=== PATIENT | male | born 1985 ===

== ENCOUNTER 2023-10-18 13:25 | Emergency (ER) | payer OTHER ==
[~2023-10-18] VITALS: Ht 188 cm; Wt 113.4 kg
[2023-10-18 13:34] VITALS: BP 108/73
[2023-10-18] MEDS ORDERED: IBUP800 PO (15:30)
== END 2023-10-18 15:48 | disposition home or self-care (01) ==
LOC: ER 13:25
DX: S16.1XXA Strain of muscle, fascia and tendon at neck level, initial encounter (principal); V43.52XA Car driver injured in collision with other type car in traffic accident, initial encounter; Z88.0 Allergy status to penicillin
CPT/HCPCS: 70450; 72125; 99284-25; A9270; L0160